=== PATIENT | male | born 1995 | race African-American/Black ===

== ENCOUNTER 2020-10-09 11:00 | Emergency (ER) | payer MEDICAID ==
[~2020-10-09] VITALS: Ht 177.8 cm; Wt 90.7 kg
[~2020-10-09 11:00] MED LIST: INVEGA3 MG PO
[2020-10-09 11:37] LABS: ABSOLUTE LYMPHOCYTES 1.8 thou/uL (0.8-5.3); ABSOLUTE MONOCYTES 0.4 thou/uL (0.0-1.2); ABSOLUTE NEUTROPHILS 4.4 thou/uL (1.6-8.1); BASOPHILS 0.7 %; EOSINOPHILS 0.7 %; HEMATOCRIT 46.8 % (42.0-52.0); HEMOGLOBIN 16.1 gm/dL (14.0-18.0); LYMPHOCYTES 26.5 %; MCH 31.2 pg (26.0-34.0); MCHC 34.3 g/dL (28.0-37.0); MPV 8.4 fl. (7.2-11.1); NUCLEATED RBCS 0 /100WBC; PLATELET COUNT* 181 thou/uL (150-400); POLYS 66.1 %; RBC 5.15 mil/uL (4.50-6.00); RDW-CV 13.1 % (10.5-14.5); WBC 6.7 thou/uL (4.0-11.0)
[2020-10-09 11:42] LABS: URINE BILIRUBIN NEGATIVE (Negative); URINE BLOOD NEGATIVE (Negative); URINE CLARITY CLEAR; URINE COLOR YELLOW; URINE GLUCOSE-RANDOM NEGATIVE (Negative); URINE KETONES NEGATIVE (Negative); URINE LEUKOCYTES-REFLEX NEGATIVE (Negative); URINE NITRITE-REFLEX NEGATIVE (Negative); URINE PROTEIN TRACE (Negative); URINE UROBILINOGEN 0.2 E.U./dl (0.2-1.0)
[2020-10-09 11:49] LABS: CALCIUM 9.2 mg/dL (8.5-10.1); CREATININE 0.9 mg/dL (0.6-1.3)
[2020-10-09 11:50] LABS: AMP/METHAMP Negative (Negative); BARBITURATES Negative (Negative); BENZODIAZEPINES Negative (Negative); COCAINE Negative (Negative); METHADONE Negative (Negative); OPIATES Negative (Negative); PCP Negative (Negative); THC POSITIVE (Negative)
[2020-10-09 11:55] LABS: ALCOHOL < 10 mg/dL (<10); SALICYLATE 2.9 mg/dL (2.8-20.0)
[2020-10-09 11:56] LABS: ACETAMINOPHEN < 2 ug/mL (10-30)
[2020-10-09 11:59] LABS: ALBUMIN 4.4 g/dL (3.4-5.0); TOTAL BILIRUBIN 0.5 mg/dL (<0.1-1.0); TOTAL PROTEIN 8.2 g/dL (6.4-8.2)
--- NOTE | 2020-10-10 17:00 | NUR ---
Spoke to Caesar at [facility] ( ) to obtain a status update in order for the CM Dir to begin searching for placement. Per Caesar, in a very harsh tone the following referrals have already been sent ([place], [place], [facility], [facility], [facility] and [facility]). Thanked him for his time and asked that if he recieves an acceptance from any of the above facilities to let someone at [facility] know. Call was discontinued by Caesar. CM Dir completed the following; -[facility] ([phone] pager) Paged twice with no response. Will follow up tomorrow if no call back -[place]/[facility] ([phone]) declined to accept due to patients behaviors -[facility] ([phone]) case still being reviewed by [employer] [employer] Operator. Will follow up tomorrow if no return call -[facility] ([phone]) declined due to patients aggressive behavior -[facility] ([phone]) left vm with no return call. Will follow up tomorrow if no call back -[facility] ([phone]) left vm with no return call. Will follow up tomorrow if no return call -[facility] ([phone]) left vm with no return call. Will follow up tomorrow if no return call -[facility] ([phone]) left vm with no return call. Will follow up tomorrow if no return call -[facility] ([phone]) left vm with no return call. Will follow up tomorrow if no return call RN Johnathan and steel checker updated of the above information CM to continue to follow for safe dc planning
[2020-10-13 10:21] VITALS: BP 178/61
== END 2020-10-13 10:21 ==
LOC: M.ERS 11:00
PROVIDERS: Family Medicine
DX: F29 Unspecified psychosis not due to a substance or known physiological condition (principal); F32.9 Major depressive disorder, single episode, unspecified; F20.9 Schizophrenia, unspecified; Z20.822 Contact with and (suspected) exposure to COVID-19